=== PATIENT | female | born 2000 | race African-American/Black ===

== ENCOUNTER 2019-04-03 11:48 | Emergency (ER) | payer BC, OTHER ==
[2019-04-03 12:43] LABS: Pregnancy Test - Urine (BHCG) Negative (Negative); Pregu Control Background? CLEAR/WHITE (CLR/WHITE); Pregu Control Bar Appear? YES (CONTROL BAR); Specific Gravity 1.016 (1.002-1.036)
[2019-04-03] MEDS ORDERED: Ketorolac Tromethamine 30 MG/ML VIAL ONE (12:58)
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
== END 2019-04-03 14:07 | disposition home or self-care (01) ==
LOC: ERS 11:48
DX: S16.1XXA Strain of muscle, fascia and tendon at neck level, initial encounter (principal); S39.012A Strain of muscle, fascia and tendon of lower back, initial encounter; S29.012A Strain of muscle and tendon of back wall of thorax, initial encounter; M25.562 Pain in left knee; V44.5XXA Car driver injured in collision with heavy transport vehicle or bus in traffic accident, initial encounter
CPT/HCPCS: 72125; 72128; 81025; 96372; J1885

== ENCOUNTER 2019-07-29 22:08 | Emergency (ER) | payer BC ==
[2019-07-29 22:48] LABS: Bilirubin Negative (Negative); Blood, Urine Negative (Negative); Clarity Clear (Clear); Glucose, Urine (Dipstick) Normal (Negative); Leukocyte 75 Leu/uL (Negative); Mucous/LPF Rare LPF (<2+); Nitrite Negative (Negative); Protein, Urine (Dipstick) Negative (Neg-Trace); RBC/HPF 0-3 HPF (0-3); Squamous Epithelial 0-3 HPF (0-3); Urobilinogen Normal mg/dL (Less than 2)
[2019-07-29 22:57] LABS: Bacteria/HPF Rare-Few HPF (None Seen)
[2019-07-29 23:10] LABS: #Basophils 0.1 thou/uL (0.0-0.2); #Eosinphils 0.2 thou/uL (0.0-0.7); #Lymphocytes 2.4 thou/uL (1.20-3.40); #Monocytes 0.5 thou/uL (0.11-0.59); #Neutrophils 3.9 thou/uL (1.40-6.50); %Basophils 0.9 % (0.0-1.0); %Eosinophils 3.5 % (0.0-10.0); %Lymphocytes 33.2 % (28.0-48.0); %Monocytes 7.5 % (0.0-4.0); %Neutrophils 54.9 % (31.0-61.0); Hemoglobin 12.2 g/dL (12.0-16.0); Mean Corpuscular HGB CONC 33.9 g/dL (32.0-36.0); Mean Corpuscular Hemoglobin 28.5 pg (25.0-35.0); Mean Corpuscular Volume 84.2 fL (78.0-98.0); Mean Platelet Volume 6.3 fL (7.4-10.4); Platelet Count 295 thou/uL (130-400); RBC Distribution Width 11.8 % (11.5-14.5); Red Blood Cell (RBC) Count 4.28 mill/uL (4.00-5.20); White Blood Cell (WBC) Count 7.2 thou/uL (4.8-10.8)
[2019-07-29 23:31] LABS: ALT (SGPT) 14 U/L (8-55); AST (SGOT) 15 U/L (5-34); Albumin 3.9 g/dL (3.5-5.0); Alkaline Phosphatase 43 U/L (40-100); Anion Gap 10 mmol/L (10-20); BUN (Urea Nitrogen) 6 mg/dL (7.0-18.7); Bilirubin, Total Less than 0.2 mg/dL (0.2-1.2); Calc. Creatinine Clearance 0 mL/min (70-130); Calcium 9.3 mg/dL (7.8-10.44); Carbon Dioxide 23 mmol/L (22-29); Chloride 107 mmol/L (98-107); Estimated GFR-MDRD Greater than 90; Globulin 3.4 g/dL (2.4-3.5); Glucose 82 mg/dL (70-105); Potassium 4.1 mmol/L (3.5-5.1); Protein, Total 7.3 g/dL (6.0-8.3); Sodium 136 mmol/L (136-145)
[2019-07-29] MEDS ORDERED: Acetaminophen 500 MG TAB ONE (23:36)
--- NOTE | 2019-07-30 09:25 | ULT ---
PRELIMINARY REPORT/[facility]/EMERGENCY AFTER HOURS PROCEDURE: PROCEDURE INFORMATION: Exam: US , Limited Exam date and time: 07/30/2019 12:56 AM Clinical history: 19 years old, female; complicated by abdominal or pelvic pain; Gestationa l age or lmp: 14w1d; ; Patient HX: Lower back pain with standing, pain better when laying nikita n, nausea, no vaginal bleeding TECHNIQUE: Imaging protocol: Real-time ultrasound of the maternal uterus with image documentation. Exam focused on the clinical indication. COMPARISON: No relevant prior studies available. FINDINGS: GESTATION: Gestation: Single living intrauterine gestation. Heart rate: heart tones 150 beats per minute. Presentation: Breech presentation. Placenta: Posterior placenta. Amniotic fluid: Adequate amniotic fluid. BIOMETRY: Estimated gestational age: Gestational age 14 weeks and 1 day. Estimated due date: Estimated due date 01/27/2020. IMPRESSION: Single living intrauterine gestation measuring 14 weeks and 1 day with estimated due date 01/27/2020. Thank you for allowing us to participate in the care of your patient. Dictated and Authenticated by: Андрей Acevedo MD 07/30/2019 2:28 AM Central Time ([place] & [place]) FINAL REPORT LIMITED OB ULTRASOUND/PELVIC ULTRASOUND WITH DOPPLER: IMPRESSION: I agree with the preliminary report given by Thelma. POS: [facility]
== END 2019-07-30 01:31 | disposition home or self-care (01) ==
LOC: ERS 22:08
DX: O99.89 Other specified diseases and conditions complicating pregnancy, childbirth and the puerperium (principal); M54.6 Pain in thoracic spine; Z3A.13 13 weeks gestation of pregnancy
CPT/HCPCS: 36415; 76856; 80053; 81003; 81015; 84702; 85025; 87086; 93976

== ENCOUNTER 2019-08-27 09:00 | Emergency (ER) | payer BC ==
[2019-08-27 10:42] LABS: #Eosinphils 0.1 thou/uL (0.0-0.7); #Lymphocytes 1.8 thou/uL (1.20-3.40); #Monocytes 0.5 thou/uL (0.11-0.59); #Neutrophils 3.9 thou/uL (1.40-6.50); %Basophils 0.2 % (0.0-1.0); %Eosinophils 2.4 % (0.0-10.0); %Lymphocytes 28.6 % (28.0-48.0); %Monocytes 7.2 % (0.0-4.0); %Neutrophils 61.7 % (31.0-61.0); Hemoglobin 11.8 g/dL (12.0-16.0); Mean Corpuscular Volume 84.9 fL (78.0-98.0); Mean Platelet Volume 6.7 fL (7.4-10.4); Platelet Count 275 thou/uL (130-400); RBC Distribution Width 11.6 % (11.5-14.5); Red Blood Cell (RBC) Count 4.21 mill/uL (4.00-5.20); White Blood Cell (WBC) Count 6.2 thou/uL (4.8-10.8)
[2019-08-27 10:59] LABS: Bilirubin Negative (Negative); Blood, Urine Negative (Negative); Clarity Clear (Clear); Glucose, Urine (Dipstick) Normal (Negative); Leukocyte 75 Leu/uL (Negative); Nitrite Negative (Negative); Protein, Urine (Dipstick) Negative (Neg-Trace); RBC/HPF 0-3 HPF (0-3); Squamous Epithelial 0-3 HPF (0-3); Urobilinogen Normal mg/dL (Less than 2); WBC/HPF 0-3 HPF (0-3)
[2019-08-27 11:00] LABS: ALT (SGPT) 15 U/L (8-55); AST (SGOT) 15 U/L (5-34); Albumin 3.5 g/dL (3.5-5.0); Alkaline Phosphatase 39 U/L (40-100); Anion Gap 8 mmol/L (10-20); BUN (Urea Nitrogen) 4 mg/dL (7.0-18.7); Bilirubin, Total Less than 0.2 mg/dL (0.2-1.2); Calc. Creatinine Clearance 0 mL/min (70-130); Calcium 8.6 mg/dL (7.8-10.44); Carbon Dioxide 22 mmol/L (22-29); Chloride 108 mmol/L (98-107); Estimated GFR-MDRD Greater than 90; Globulin 3.1 g/dL (2.4-3.5); Glucose 70 mg/dL (70-105); Lipase 16 U/L (8-78); Potassium 3.6 mmol/L (3.5-5.1); Protein, Total 6.6 g/dL (6.0-8.3); Sodium 134 mmol/L (136-145)
[2019-08-27 11:06] LABS: Bacteria/HPF None Seen HPF (None Seen)
[2019-08-27 11:37] LABS: Creatinine, Urine 104.44 mg/dL (47-110); Protein, Urine Random Quant Less than 10 mg/dL (1-14)
== END 2019-08-27 12:14 | disposition home or self-care (01) ==
LOC: ERS 09:00
DX: O26.891 Other specified pregnancy related conditions, first trimester (principal); R10.9 Unspecified abdominal pain; Z3A.17 17 weeks gestation of pregnancy
CPT/HCPCS: 36415; 80053; 81003; 81015; 82570; 83690; 84156; 85025; 99284

== ENCOUNTER 2019-10-13 16:08 | Emergency (ER) | payer BC ==
[2019-10-13] MEDS ORDERED: Ondansetron PF 4 MG/2 ML Vial ONE (17:27)
[2019-10-13 17:53] LABS: #Eosinphils 0.1 thou/uL (0.0-0.7); #Lymphocytes 1.8 thou/uL (1.20-3.40); #Monocytes 0.5 thou/uL (0.11-0.59); #Neutrophils 6.6 thou/uL (1.40-6.50); %Basophils 0.3 % (0.0-1.0); %Eosinophils 1.2 % (0.0-10.0); %Lymphocytes 20.1 % (28.0-48.0); %Monocytes 5.8 % (0.0-4.0); %Neutrophils 72.6 % (31.0-61.0); Hemoglobin 12.2 g/dL (12.0-16.0); Mean Corpuscular HGB CONC 33.7 g/dL (32.0-36.0); Mean Corpuscular Hemoglobin 28.1 pg (25.0-35.0); Mean Corpuscular Volume 83.2 fL (78.0-98.0); Mean Platelet Volume 6.6 fL (7.4-10.4); Platelet Count 292 thou/uL (130-400); RBC Distribution Width 11.3 % (11.5-14.5); Red Blood Cell (RBC) Count 4.36 mill/uL (4.00-5.20); White Blood Cell (WBC) Count 9.1 thou/uL (4.8-10.8)
[2019-10-13 18:17] LABS: Bacteria/HPF None Seen HPF (None Seen); Bilirubin Negative (Negative); Blood, Urine Negative (Negative); Clarity Clear (Clear); Glucose, Urine (Dipstick) Normal (Negative); Leukocyte 25 Leu/uL (Negative); Nitrite Negative (Negative); Protein, Urine (Dipstick) Negative (Neg-Trace); RBC/HPF 0-3 HPF (0-3); Squamous Epithelial 0-3 HPF (0-3); Urobilinogen Normal mg/dL (Less than 2); WBC/HPF 0-3 HPF (0-3)
[2019-10-13 18:20] LABS: ALT (SGPT) 8 U/L (8-55); AST (SGOT) 12 U/L (5-34); Albumin 3.7 g/dL (3.5-5.0); Alkaline Phosphatase 48 U/L (40-100); Anion Gap 11 mmol/L (10-20); BUN (Urea Nitrogen) 5 mg/dL (7.0-18.7); Bilirubin, Total 0.3 mg/dL (0.2-1.2); Calc. Creatinine Clearance 0 mL/min (70-130); Calcium 8.9 mg/dL (7.8-10.44); Carbon Dioxide 20 mmol/L (22-29); Chloride 109 mmol/L (98-107); Estimated GFR-MDRD Greater than 90; Globulin 3.5 g/dL (2.4-3.5); Glucose 87 mg/dL (70-105); Lipase 62 U/L (8-78); Potassium 3.6 mmol/L (3.5-5.1); Protein, Total 7.2 g/dL (6.0-8.3); Sodium 136 mmol/L (136-145)
== END 2019-10-13 20:00 | disposition home or self-care (01) ==
LOC: ERS 16:08
DX: O99.282 Endocrine, nutritional and metabolic diseases complicating pregnancy, second trimester (principal); E86.0 Dehydration; E86.1 Hypovolemia; Z3A.24 24 weeks gestation of pregnancy
CPT/HCPCS: 80053; 81003; 81015; 83690; 85025; 96361; 96374; J2405

== ENCOUNTER 2019-10-24 07:09 | Emergency (ER) | payer BC, MEDICAID ==
[2019-10-24] MEDS ORDERED: Lidocaine 1% w/Epinephrine 1:100K 20 ML VIAL ONE (07:37)
== END 2019-10-24 08:19 | disposition home or self-care (01) ==
LOC: ERS 07:09
DX: O99.712 Diseases of the skin and subcutaneous tissue complicating pregnancy, second trimester (principal); L02.412 Cutaneous abscess of left axilla; Z3A.25 25 weeks gestation of pregnancy
CPT/HCPCS: 10060

== ENCOUNTER 2019-10-25 10:55 | Emergency (ER) | payer BC, MEDICAID | END 2019-10-25 11:50 | disposition home or self-care (01) | LOC: ERS 10:55 | DX: O99.89 Other specified diseases and conditions complicating pregnancy, childbirth and the puerperium (principal); Z48.817 Encounter for surgical aftercare following surgery on the skin and subcutaneous tissue; Z79.899 Other long term (current) drug therapy; Z3A.25 25 weeks gestation of pregnancy | CPT/HCPCS: 99283 ==

== ENCOUNTER 2019-11-20 22:11 | Day surgery (SDC) | payer OTHER ==
[2019-11-20 22:46] VITALS: BMI 38.4
[2019-11-20] MEDS ORDERED: hydrALAZINE 20 MG/ML VIAL SLOW IVP PRN (23:00)
--- NOTE | 2019-11-20 23:39 | PRG ---
DATE OF SERVICE: 11/20/2019 TIME OF SERVICE: 2300 hours. PRESENTING COMPLAINT: Abdominal pain for 1 to 2 weeks at 29 weeks gestation. HISTORY OF PRESENT ILLNESS: The patient presents complaining of abdominal discomfort that she states is more global, is not cyclic, and not associated with any discharge, bleeding, back pain, or dysuria. She states it has been present for a week or two, but she forgot to mention it to Dr. Goldstein, so she wanted to have it checked out tonight. OFFICE ASSISTANCE HISTORY: Primigravida, EDC of 01/31. Blood type O positive, antibody negative. Pap negative. Rubella immune. VDRL nonreactive. Hepatitis B, GC negative. Chlamydia positive. Normal 50 g. PAST MEDICAL HISTORY: Denies. PAST SURGICAL HISTORY: Denies. ALLERGIES: NONE. MEDICATIONS: vitamins. SOCIAL HISTORY: Denies tobacco, alcohol, or IV drug use. FAMILY HISTORY: Noncontributory. REVIEW OF SYSTEMS: Noncontributory. PHYSICAL EXAMINATION: GENERAL: Obese, black female, in no acute distress. VITAL SIGNS: Temperature 97.9, respirations 18, pulse 85, and blood pressure 118/82. HEENT: Within normal limits. LUNGS: Clear to auscultation bilaterally. HEART: Regular rate and rhythm. ABDOMEN: Soft and nontender without rebound or guarding. She is on normal discomfort with palpation of the fundus. She has no CVA tenderness. Vulva has no lesions. Vaginal exam is deferred. EXTREMITIES: Without clubbing, cyanosis, or edema. 20-minute strip was obtained. heart rate tracing was 150s without decelerations. There is minimal variability noted consistent with the patient's of 29 weeks gestation. No contractions were noted. IMPRESSION: Discomforts of at 29 weeks gestation. No pathologic diagnosis. PLAN: ER precautions. The patient is to keep scheduled followup with Dr. Goldstein. Discharge home. Job ID: [id number]
== END 2019-11-20 23:16 | disposition home health service (06) ==
LOC: L&D/OP 22:11
PROVIDERS: ATTEND Obstetrics & Gynecology
DX: O99.89 Other specified diseases and conditions complicating pregnancy, childbirth and the puerperium (principal); R10.9 Unspecified abdominal pain; Z3A.29 29 weeks gestation of pregnancy
CPT/HCPCS: 99282

== ENCOUNTER 2019-11-26 18:14 | Day surgery (SDC) | payer OTHER ==
[2019-11-26 18:47] VITALS: BMI 38.4
[2019-11-26] MEDS ORDERED: hydrALAZINE 20 MG/ML VIAL SLOW IVP PRN (18:59)
[2019-11-26] MEDS ORDERED: FLU VACC QS2019-20(6MOS UP)/PF 60 MCG/0.5 ML SYRINGE IM ONE (19:00)
[2019-11-26 19:43] LABS: Bacteria/HPF None Seen HPF (None Seen); Bilirubin Negative (Negative); Blood, Urine Negative (Negative); Clarity Clear (Clear); Glucose, Urine (Dipstick) Normal (Negative); Leukocyte 75 Leu/uL (Negative); Nitrite Negative (Negative); Protein, Urine (Dipstick) Negative (Neg-Trace); RBC/HPF 0-3 HPF (0-3); Squamous Epithelial 0-3 HPF (0-3); Urobilinogen Normal mg/dL (Less than 2); WBC/HPF 0-3 HPF (0-3)
[2019-11-26 20:09] LABS: FFN Internal QC Analyzer PASS (PASS); FFN Internal QC Cassette PASS (PASS); Fetal Fibronectin Negative (Negative)
--- NOTE | 2019-11-27 01:46 | SS ---
DATE OF ADMISSION: 11/26/2019 DATE OF DISCHARGE: 11/26/2019 REGULAR PHYSICIAN: Андрей Goldstein MD EVALUATING PHYSICIAN: Glenroy Delacruz MD CHIEF COMPLAINT: Back pain, lower abdominal pain. HISTORY OF PRESENT ILLNESS: Ms. Rosales is a 19-year-old black G1, P0 with an estimated date of confinement of 02/01/2020, who presents complaining of intermittent back and lower abdominal discomfort. She denies ruptured membranes or vaginal bleeding. She had similar complaints almost a week ago with Dr. Garcia and her exam was nonfocal at that time. Her care has been with Dr. Goldstein without reported complications. PAST MEDICAL HISTORY: None. PAST SURGICAL HISTORY: None. CURRENT MEDICATIONS: vitamins. ALLERGIES: NO KNOWN ALLERGIES. SOCIAL HISTORY: Denies tobacco or alcohol use. She denies drug use. FAMILY HISTORY: Unremarkable. REVIEW OF SYSTEMS: Denies nausea, vomiting, fever, chills, ruptured membranes, or vaginal bleeding. PHYSICAL EXAMINATION: VITAL SIGNS: Her vital signs are stable. She is afebrile. GENERAL: She is in no distress. ABDOMEN: Soft, nontender, and gravid. heart rate tracing is stable. No uterine contractions are seen. Urinalysis shows a specific gravity of 1.018. Her urine is clear. Negative for protein, negative glucose, negative ketones, negative blood, negative nitrites. Trace leukocyte esterase. On microscopic, there is 0 to 3 rbc's, 0 to 3 wbc's, 0 to 3 squamous cells with no bacteria seen. Her fibronectin returns negative. PELVIC: Pelvic exam done after the completion of these tests by the labor nurse shows her cervix to be closed and long. ASSESSMENT: 1. Thirty and 3/7th week intrauterine . 2. No evidence of labor. PLAN: As I suspect this probably just represents round ligament pain, I have told her that she can use Tylenol at home and either soak in a warm tub or use a heating pad low on her back. labor precautions were reviewed with her in detail. The patient voices understanding of her discharge instructions and was sent home in good condition. She states that she has an appointment with Dr. Goldstein in approximately one weeks time. Job ID: [id number]
== END 2019-11-26 20:56 | disposition home or self-care (01) ==
LOC: L&D/OP 18:14
PROVIDERS: ATTEND Obstetrics & Gynecology
DX: O99.89 Other specified diseases and conditions complicating pregnancy, childbirth and the puerperium (principal); M54.9 Dorsalgia, unspecified; R10.30 Lower abdominal pain, unspecified; Z3A.30 30 weeks gestation of pregnancy
CPT/HCPCS: 81003; 81015; 82731

== ENCOUNTER 2020-01-27 04:01 | Day surgery (SDC) | payer BC, OTHER ==
[2020-01-27 04:37] VITALS: BP 128/75; TEMP 99; BMI 39.9
[2020-01-27] MEDS ORDERED: hydrALAZINE 20 MG/ML VIAL SLOW IVP PRN (04:55)
--- NOTE | 2020-01-27 08:08 | PRG ---
DATE OF SERVICE: 01/27/2020 PRIMARY OB: Андрей Goldstein MD CHIEF COMPLAINT: Pelvic cramping and decreased movement. HISTORY OF PRESENT ILLNESS: The patient is a 19-year-old G1, P0 female with an intrauterine at 39 weeks and 2 days, presenting to Labor and Delivery with pelvic pains that are more sharp in nature and also pressure in her bottom and decreased movement. The patient denies any leakage of fluid, change in discharge or vaginal bleeding. She denies painful contractions. She denies fever, cough, headache, chest pain, shortness of breath, nausea, vomiting, or constipation. The patient reports she has had some diarrhea in the last 24 hours. Denies new rashes, hip problems, knee problems, muscle weakness, vaginal bleeding, leakage of fluid, urinary urgency or frequency. PAST MEDICAL HISTORY: Negative. PAST SURGICAL HISTORY: Negative. ALLERGIES: NO KNOWN DRUG ALLERGIES. MEDICATIONS: vitamins. SOCIAL HISTORY: Denies drug, alcohol, or tobacco use. OB LABS: Blood type is O-positive, GBS is negative. She is rubella immune. Hepatitis B surface antigen is negative. RPR is negative. REVIEW OF SYSTEMS: Per HPI. PHYSICAL EXAMINATION: VITAL SIGNS: Blood pressure is 128/75, heart rate of 75, respiratory rate of GENERAL: She appears to be in no acute distress. She is alert, oriented, cooperative, pleasant to interact with. HEENT: Head is normocephalic, atraumatic. LUNGS: Clear to auscultation bilaterally. HEART: Has a regular rate and rhythm. ABDOMEN: Gravid, soft, nontender. She does have some tenderness with deviation of the uterus to the left and right sides. EXTREMITIES: Nontender, nonedematous. CERVICAL: Closed. heart tracing shows the fetus with a baseline in the 130s with moderate long-term variability and positive 15 x 15 accelerations. ASSESSMENT AND PLAN: The patient is a 19-year-old female with an intrauterine at 39 weeks and 2 days, presenting with decreased movement and pelvic abdominal cramping. There is no evidence of labor at this time and fetus has a reactive NST. The patient is being discharged home. She has an appointment to follow up with Dr. Goldstein in a couple of days, which we have encouraged that she keep. Job ID: [id number]
== END 2020-01-27 05:32 | disposition home or self-care (01) ==
LOC: L&D/OP 04:01
PROVIDERS: ATTEND Obstetrics & Gynecology
DX: O36.8130 Decreased fetal movements, third trimester, not applicable or unspecified (principal); O99.89 Other specified diseases and conditions complicating pregnancy, childbirth and the puerperium; R10.2 Pelvic and perineal pain; Z3A.39 39 weeks gestation of pregnancy
CPT/HCPCS: 99282

== ENCOUNTER 2020-02-01 14:04 | Inpatient (IN) | payer BC, OTHER ==
[2020-02-01 14:35] VITALS: BMI 39.7
[2020-02-01] MEDS: Lactated Ringer's 1,000 ML IV SCH (14:52)
[2020-02-01 15:05] LABS: Amnisure Test RUPTURE DETECTED (No Rupture)
[2020-02-01 15:06] LABS: Amnisure Internal Control QC ACCEPTABLE (ACCEPTABLE)
[2020-02-01] MEDS ORDERED: Misoprostol 200 MCG TAB PR PRN (15:07)
[2020-02-01] MEDS ORDERED: HYDROcodone/Acetaminophen 5/325 mg Tablet PO PRN (15:07)
[2020-02-01] MEDS ORDERED: Lidocaine 1% (PF) 30 ML VIAL SC PRN (15:07)
[2020-02-01] MEDS ORDERED: NS / Oxytocin 40 units/1000ml 1,000 ML IV PRN (15:07)
[2020-02-01] MEDS ORDERED: Carboprost 250 MCG/ML AMP IM PRN (15:07)
[2020-02-01] MEDS ORDERED: Methylergonovine 0.2 MG/ML VIAL IM PRN (15:07)
[2020-02-01] MEDS ORDERED: Diphenoxylate HCl/Atropine Tablet PO PRN (15:07)
[2020-02-01] MEDS ORDERED: Butorphanol Tartrate 1 MG/ML VIAL SLOW IVP PRN (15:07)
[2020-02-01] MEDS ORDERED: Ondansetron PF 4 MG/2 ML Vial IVP PRN (15:07)
[2020-02-01] MEDS ORDERED: Ibuprofen 800 MG TAB PO PRN (15:07)
[2020-02-01] MEDS ORDERED: hydrALAZINE 20 MG/ML VIAL SLOW IVP PRN (15:07)
[2020-02-01] MEDS ORDERED: Acetaminophen 500 MG TAB PO PRN (15:07)
[2020-02-01] MEDS ORDERED: Promethazine HCl 25 MG/ML VIAL IM PRN (15:07)
[2020-02-01] MEDS ORDERED: NS w/ Oxytocin 10 units 500 ML IV SCH (15:15)
[2020-02-01] MEDS: Misoprostol 100 MCG TAB PO SCH ×3 (15:43→23:07)
[2020-02-01 15:45] LABS: Hemoglobin 13.2 g/dL (12.0-16.0); Mean Corpuscular HGB CONC 33.2 g/dL (32.0-36.0); Mean Corpuscular Hemoglobin 28.3 pg (25.0-35.0); Mean Corpuscular Volume 85.4 fL (78.0-98.0); Mean Platelet Volume 7.7 fL (7.4-10.4); Platelet Count 285 thou/uL (130-400); RBC Distribution Width 12.9 % (11.5-14.5); Red Blood Cell (RBC) Count 4.66 mill/uL (4.00-5.20)
[2020-02-01 16:17] LABS: Hep B Surf Ag Non-Reactive S/CO (NonReactive)
[2020-02-01 16:24] LABS: Syphilis Antibody Nonreactive (Nonreactive); Syphilis Antibody Index 0.08 S/CO (<1.00 Non-Reactive)
[2020-02-02] MEDS ORDERED: Fentanyl 4 mcg/Bup 0.1% Cadd 100 ML ONE (04:13)
[2020-02-02] MEDS: Lactated Ringer's 1,000 ML IV SCH ×3 (04:41→19:55)
[2020-02-02] MEDS ORDERED: Lactated Ringer's 500 ML IV PRN (05:05)
[2020-02-02] MEDS ORDERED: diphenhydrAMINE 50 MG/ML VIAL IVP PRN ×3 (05:05→11:01)
[2020-02-02] MEDS ORDERED: Ondansetron PF 4 MG/2 ML Vial IVP PRN ×4 (05:05→13:27)
[2020-02-02] MEDS ORDERED: EPHEDRINE 25 MG/5 ML SYRINGE SLOW IVP PRN (05:05)
[2020-02-02] MEDS ORDERED: Naloxone HCl 0.4 mg/ml Vial IVP PRN ×4 (05:05→11:01)
[2020-02-02] MEDS ORDERED: Promethazine HCl 25 MG/ML VIAL IM PRN ×3 (05:05→11:01)
[2020-02-02] MEDS ORDERED: Acetaminophen 325 MG TAB PO PRN ×2 (05:05→13:27)
[2020-02-02] MEDS ORDERED: Fentanyl 4 mcg/Bupivacaine 0.1% Cassette 100 ML EPIDURAL SCH (05:15)
[2020-02-02] MEDS ORDERED: Communication Order-Pharmacy FS SCH ×3 (05:15→11:15)
[2020-02-02] MEDS ORDERED: Lidocaine 2% MPF 10 ML AMP (For Epidural Use) ONE (08:51)
[2020-02-02] MEDS ORDERED: PHENYLEPHRINE-NS 100 MCG/ML 10 ML SYRINGE ONE (08:51)
[2020-02-02] MEDS ORDERED: EPHEDRINE 25 MG/5 ML SYRINGE ONE (08:51)
[2020-02-02] MEDS ORDERED: Bupivacaine 0.5% 10 ML VIAL ONE (08:51)
[2020-02-02] MEDS ORDERED: Oxytocin 10 UNITS/ML VIAL ONE (08:51)
[2020-02-02] MEDS ORDERED: MORPHINE 5 MG/10 ML PF VIAL ONE (08:52)
[2020-02-02] MEDS ORDERED: Bicitra 30 ML UDCUP ONE (09:03)
[2020-02-02] MEDS ORDERED: Azithromycin 500 MG VIAL ONE (09:38)
--- NOTE | 2020-02-02 09:42 | PDOC.LDHP ---
Labor and Delivery H&P Chief complaint: loss of fluid HPI: 19 y/o presents to L&D grossly ruptured, and admitted for a trial of labor. Minimal contractions, premature ROM. We will start Cytotec po as cervix remains unfavorable. is still a real possibility if patient doesn't respond to Cytotec/Pitocin. Due date: 02/01/20 Grav: 1 Para: 0 Current medications: pre- vitamins Allergies/Adverse Reactions: Allergies Allergy/AdvReac Type Severity Reaction Status Date / Time No Known Drug Allergies Allergy Verified 02/01/20 14:32 Social history: none - Physical Exam Vital signs reviewed and normal: yes General: NAD, resting, breathing through contractions Heart: RRR Lungs: CTAB Abdomen: gravid Extremeties: no edema FHT: category 1 - Assessment L&D Assessment: term rupture in membranes - Plan Plan: admit to L&D, cervical ripening
[2020-02-02] MEDS ORDERED: Bicitra 30 ML UDCUP PO SCH (09:45)
[2020-02-02] MEDS ORDERED: CEFAZOLIN 2 GM in Premix Bag 1 BAG IVPB SCH (09:45)
[2020-02-02] MEDS ORDERED: Azithromycin 500 MG in Sodium Chloride 0.9% 250 ML 250 ML IVPB SCH (09:45)
--- NOTE | 2020-02-02 09:48 | PDOC.LDPN ---
Labor & Delivery Progress Note - Subjective Subjective: comfortable, loss of fluid - Objective Vital signs reviewed and normal: yes General: NAD, resting Uterine fundus: non tender Dilation: 2 Effacement: 50% -: Patient has been ruptured over 20 hours. Variablity is still minimal,and nursing team not comfortable starting pitocin. Cervix has only slight change since admission. The above was carefully discusse with the patient who opts to proceed with , and decrease risk of Chorioamnionitis at this point which makes sense. Azithromycin and Ancef will be given. R/B/A of carefully reviewed with patient.
[2020-02-02] MEDS ORDERED: Succinylcholine Chloride 20 MG/ML 10 ml SYRINGE FS ONE (10:03)
[2020-02-02] MEDS ORDERED: PROPOFOL 20 ML ONE (10:03)
[2020-02-02] MEDS ORDERED: Fentanyl 100 MCG/2 ML VIAL ONE ×2 (10:22→10:24)
[2020-02-02] MEDS ORDERED: diphenhydrAMINE 50 MG/ML VIAL IM PRN (11:01)
[2020-02-02] MEDS ORDERED: Zolpidem Tartrate 5 MG TAB PO PRN (11:01)
[2020-02-02] MEDS ORDERED: fentaNYL Citrate/PF 2,000 MCG in Sodium Chloride 0.9% 60 ML IV PRN (11:01)
[2020-02-02] MEDS ORDERED: HYDROmorphone 2 MG/ML VIAL SLOW IVP PRN (11:01)
[2020-02-02] MEDS ORDERED: Promethazine HCl 25 MG SUPP PR PRN (11:01)
[2020-02-02] MEDS ORDERED: Ondansetron HCl/PF 4 MG/2 ML Vial IVP PRN (11:01)
[2020-02-02] MEDS ORDERED: L&D-Morphine 4 MG/ML VIAL SLOW IVP PRN (11:01)
[2020-02-02] MEDS ORDERED: Meperidine HCl/PF 25 MG/ML VIAL SLOW IVP PRN (11:01)
[2020-02-02] MEDS ORDERED: diphenhydrAMINE 25 MG CAP PO PRN (11:01)
[2020-02-02] MEDS ORDERED: Naloxone HCl 0.4 mg/ml Vial IV PRN ×2 (11:01)
[2020-02-02] MEDS ORDERED: Ketorolac Tromethamine 30 MG/ML VIAL IVP SCH (11:15)
[2020-02-02] MEDS ORDERED: Ketorolac Tromethamine 30 MG/ML VIAL ONE (11:17)
[2020-02-02] MEDS ORDERED: Meperidine HCl/PF 25 MG/ML VIAL ONE (11:17)
[2020-02-02] MEDS ORDERED: NS / Oxytocin 40 units/1000ml 1,000 ML ONE (11:18)
[2020-02-02] MEDS: Ketorolac Tromethamine 30 MG/ML VIAL IVP PRN (11:20)
[2020-02-02] MEDS ORDERED: Varicella virus, LIVE 0.5 ML VIAL SC ONE (13:27)
[2020-02-02] MEDS ORDERED: hydrALAZINE 20 MG/ML VIAL SLOW IVP PRN (13:27)
[2020-02-02] MEDS ORDERED: Measles/Mumps/Rubella 10 MCG/0.5 ML VIAL SC ONE (13:27)
[2020-02-02] MEDS ORDERED: Adacel (T-DAP) 0.5 ML SYRINGE IM ONE (13:27)
[2020-02-02] MEDS: Misoprostol 100 MCG TAB PO SCH (13:31)
[2020-02-02] MEDS: Ferrous Sulfate 325 MG TAB PO SCH (17:57)
[2020-02-02] MEDS: Docusate Calcium (SURFAK) 240 MG CAP PO SCH (21:30)
[2020-02-03] MEDS ORDERED: Simethicone Chewable 80 MG TAB PO PRN (00:16)
[2020-02-03] MEDS: Ketorolac Tromethamine 30 MG/ML VIAL IVP PRN (03:47)
[2020-02-03] MEDS: Lactated Ringer's 1,000 ML IV SCH (03:48)
[2020-02-03 06:02] LABS: Hemoglobin 10.4 g/dL (12.0-16.0); Mean Corpuscular HGB CONC 32.8 g/dL (32.0-36.0); Mean Corpuscular Hemoglobin 27.9 pg (25.0-35.0); Mean Corpuscular Volume 85.2 fL (78.0-98.0); Mean Platelet Volume 6.9 fL (7.4-10.4); Platelet Count 234 thou/uL (130-400); RBC Distribution Width 12.7 % (11.5-14.5); Red Blood Cell (RBC) Count 3.72 mill/uL (4.00-5.20); White Blood Cell (WBC) Count 12.1 thou/uL (4.8-10.8)
[2020-02-03] MEDS: Ferrous Sulfate 325 MG TAB PO SCH ×2 (07:37→14:50)
[2020-02-03] MEDS: Prenatal Vitamin 1 TAB PO SCH (07:39)
[2020-02-03] MEDS: Docusate Calcium (SURFAK) 240 MG CAP PO SCH ×2 (07:39→21:44)
--- NOTE | 2020-02-03 14:09 | PDOC.PP ---
Post Progress Note Post Day #: 1 PO intake tolerated: yes Flatus: yes Ambulation: yes Vital Signs (12 hours) Temp Pulse Resp BP Pulse Ox 02/03/20 11:05 98.9 F 87 20 133/80 97 02/03/20 07:57 98.7 F 82 20 136/86 97 02/03/20 03:40 98.3 F 85 18 133/82 Weight Weight 239 lb - Physical Examination General: NAD Cardiovascular: no m/r/g, RRR Respiratory: clear to auscultation bilaterally, non-labored breathing Abdominal: no distention, appropriately TTP Extremities: negative homans (B) Skin: CS incision dry & intact, no rash Neurological: no gross focal deficits Psychiatric: A&Ox3, normal affect Result Diagrams: 02/03/20 05:36 Additional Labs: Post Labs Blood Type O POSITIVE 02/01/20 15:59 Hep Bs Antigen Non-Reactive S/CO (NonReactive) 02/01/20 15:23
[2020-02-03] MEDS: Ibuprofen 800 MG TAB PO SCH ×2 (14:48→21:45)
[2020-02-04] MEDS: Ibuprofen 800 MG TAB PO SCH ×3 (05:29→22:37)
[2020-02-04] MEDS: Ferrous Sulfate 325 MG TAB PO SCH ×2 (08:06→11:42)
[2020-02-04] MEDS: Docusate Calcium (SURFAK) 240 MG CAP PO SCH ×2 (09:30→22:37)
[2020-02-04] MEDS: Prenatal Vitamin 1 TAB PO SCH (09:30)
[2020-02-04] MEDS: HYDROcodone/Acetaminophen 5/325 mg Tablet PO PRN ×4 (10:15→22:37)
--- NOTE | 2020-02-04 12:34 | PDOC.PP ---
Post Progress Note Post Day #: 2 PO intake tolerated: yes Flatus: yes Ambulation: yes Vital Signs (12 hours) Temp Pulse Resp BP Pulse Ox 02/04/20 11:37 97.8 F 102 H 20 139/87 99 02/04/20 07:53 98.4 F 78 20 132/84 98 02/04/20 04:45 98.3 F 72 17 136/78 02/04/20 00:40 98.9 F 89 16 123/74 Weight Weight 239 lb - Physical Examination General: NAD Cardiovascular: no m/r/g, RRR Respiratory: clear to auscultation bilaterally, non-labored breathing Abdominal: + bowel sounds, lochia, no distention, appropriately TTP Extremities: negative homans (B) Skin: CS incision dry & intact, no rash Neurological: no gross focal deficits Psychiatric: A&Ox3, normal affect Result Diagrams: 02/03/20 05:36 Additional Labs: Post Labs Blood Type O POSITIVE 02/01/20 15:59 Hep Bs Antigen Non-Reactive S/CO (NonReactive) 02/01/20 15:23
--- NOTE | 2020-02-04 13:04 | OP ---
DATE OF PROCEDURE: 02/02/2020 TIME: At 1010 hours central daylight savings time. PREOPERATIVE DIAGNOSIS: Intrauterine at 40 weeks and 1 day with spontaneous rupture of membranes with failure to dilate. POSTOPERATIVE DIAGNOSIS: Intrauterine at 40 weeks and 1 day with spontaneous rupture of membranes with failure to dilate. PROCEDURE PERFORMED: Primary low-transverse section under general anesthesia. FINDINGS: Viable male , weighing 2947 g or 6 pounds 8 ounces. Apgars of 8 and 9. QUANTITATIVE BLOOD LOSS: 415 mL. COMPLICATIONS: None. DETAILS OF THE PROCEDURE: The patient was consented and taken back to the operating room where spinal anesthesia was found to be adequate. She was then prepped and draped in the normal sterile fashion. A timeout was performed by the entire operative team. The incision was then marked with a marking pen tested using sharp pickups. An incision was then made with a scalpel. The incision was carried through the adipose tissue down to the underlying rectus fascia using both sharp dissection as well as cautery. Once the fascia was identified, it was incised in the midline and then the fascial incision was carried through in both lateral directions using sharp as well as cautery dissection techniques. Next, the superior aspect of the rectus fascia was grasped with 2 Jasmina clamps, which was tented up and the rectus muscles were dissected off using blunt dissection as well as cautery dissection. Similarly, the inferior aspect of the fascial incision was grasped with 2 Jasmina clamps, tented up and the rectus muscles were dissected off bluntly as well as sharply. Next, the rectus muscles were in the midline and the peritoneum identified. The peritoneum was then carefully grasped with 2 hemostats and entered sharply. The peritoneal incision was extended superiorly and inferiorly and bladder blade was placed in the lower abdomen. At this point, the uterus was identified and the bladder flap was then developed using pickups with teeth as well as Metzenbaum scissors in both lateral directions. The bladder flap was then dissected downwards using the longitudinal float operator's finger as well as Metzenbaum scissors. The bladder blade was replaced. The lower uterine segment was then identified and entered sharply using a clean scalpel. The uterine incision was then dissected downwards until thin layer of muscle remained and this was entered bluntly using a hemostat to avoid any injury to the baby. The uterine incision was then stretched using two fingers in both lateral directions. An amniotomy was performed artificially using a hemostat and the baby was delivered using fundal pressure in a gentle fashion. Once out, the baby's mouth and nose were bulb suctioned, cord clamped and cut, and the baby was handed to waiting attendants. Next, the uterus was exteriorized, cleared of all clots and debris and the uterine incision was repaired with #1 Monocryl in a running locking fashion. A 2nd suture of the same type was used to obtain complete hemostasis at the uterine incision. The bladder flap was reapproximated using 3-0 Monocryl. Next, patient's left and right adnexa were inspected and appeared to be within normal limits. The posterior cul-de-sac was blotted dry and hemostasis assured. One more look at the uterine incision demonstrated hemostasis. Next, the uterus was replaced back within the abdomen. The peritoneum was reapproximated using 2-0 Monocryl without difficulty. The rectus muscles were then allowed to come back together and 0 chromic was used to aid in reapproximation of the muscle as necessary. The rectus fascia was then reapproximated in a running fashion using 0 Vicryl suture. The adipose tissue was then examined and appeared to be well approximated without any obvious separations. Finally, the skin was reapproximated with 3-0 Monocryl on a Rory needle without difficulty and Dermabond adhesive was applied to the skin. Once the glue was dry, the drapes were removed and the patient was transferred to an ambulatory bed where she was taken to recovery awake and in stable condition. Sponge, lap, and needle counts were correct x3. Job ID: [id number]
[2020-02-05] MEDS: Ibuprofen 800 MG TAB PO SCH ×2 (05:57→14:24)
[2020-02-05 08:23] VITALS: BP 138/79; TEMP 98.6
[2020-02-05] MEDS: Ferrous Sulfate 325 MG TAB PO SCH (08:24)
[2020-02-05] MEDS: Prenatal Vitamin 1 TAB PO SCH (08:32)
[2020-02-05] MEDS: Docusate Calcium (SURFAK) 240 MG CAP PO SCH (08:32)
[2020-02-05] MEDS: HYDROcodone/Acetaminophen 5/325 mg Tablet PO PRN (09:54)
--- NOTE | 2020-02-05 12:50 | PDOC.PP ---
Post Progress Note Post Day #: 3 PO intake tolerated: yes Flatus: yes Ambulation: yes Vital Signs (12 hours) Temp Pulse Resp BP Pulse Ox 02/05/20 07:50 98 02/05/20 07:06 98.6 F 77 20 138/79 98 Weight Weight 239 lb - Physical Examination General: NAD Cardiovascular: no m/r/g, RRR Respiratory: clear to auscultation bilaterally, non-labored breathing Abdominal: + bowel sounds, lochia, no distention Extremities: negative homans (B) Skin: CS incision dry & intact, no rash Neurological: no gross focal deficits (DC to home today) Psychiatric: A&Ox3, normal affect Result Diagrams: 02/03/20 05:36 Additional Labs: Post Labs Blood Type O POSITIVE 02/01/20 15:59 Hep Bs Antigen Non-Reactive S/CO (NonReactive) 02/01/20 15:23
== END 2020-02-05 15:15 | disposition home or self-care (01) | DRG 788 ==
LOC: L&D 14:04 → 3SW 02-02 16:31
PROVIDERS: ADMIT Obstetrics & Gynecology; ATTEND Obstetrics & Gynecology
PROC: 10D00Z1 Extraction of Products of Conception, Low, Open Approach (ICD-10-PCS; principal; 2020-02-04)
DX: O63.9 Long labor, unspecified (principal); O62.0 Primary inadequate contractions; Z3A.40 40 weeks gestation of pregnancy; Z37.0 Single live birth
CPT/HCPCS: 36415; 51702; 84112; 85027; 86780; 86850; 86900; 86901; 87340; J0456; J0690; J1885; J2001; J2175; J2274; J2590; J2704; J3010; J3490; Q0163

== ENCOUNTER 2020-03-19 04:31 | Emergency (ER) | payer BC, OTHER ==
[2020-03-19] MEDS ORDERED: HYDROcodone/Acetaminophen 5/325 mg Tablet ONE (05:10)
[2020-03-19] MEDS ORDERED: Lidocaine 1% w/Epinephrine 1:100K 20 ML VIAL ONE (05:21)
[2020-03-19] MEDS ORDERED: Bacitracin 1 PK ONE (06:30)
== END 2020-03-19 06:20 | disposition home or self-care (01) ==
LOC: ERS 04:31
DX: L02.412 Cutaneous abscess of left axilla (principal)
CPT/HCPCS: 10060

== ENCOUNTER 2020-07-10 20:56 | Emergency (ER) | payer OTHER ==
[2020-07-11 13:25] LABS: SARS-CoV-2 MS2 Positive; SARS-CoV-2 N Gene Negative; SARS-CoV-2 S Gene Negative; SARS-CoV-2 by NAA Not Detected (NotDetected); SARS-CoV-2 orf1ab Negative
== END 2020-07-10 22:20 | disposition home or self-care (01) ==
LOC: ERS 20:56
DX: R50.9 Fever, unspecified (principal); Z20.828 Contact with and (suspected) exposure to other viral communicable diseases
CPT/HCPCS: 87635; 99283; U0003

== ENCOUNTER 2020-08-25 16:47 | Emergency (ER) | payer OTHER ==
[2020-08-26 01:13] LABS: SARS-CoV-2 MS2 Positive; SARS-CoV-2 N Gene Positive; SARS-CoV-2 S Gene Positive; SARS-CoV-2 by NAA DETECTED (NotDetected); SARS-CoV-2 orf1ab Positive
== END 2020-08-25 18:00 | disposition home or self-care (01) ==
LOC: ERS 16:47
DX: U07.1 COVID-19 (principal)
CPT/HCPCS: 87635; 99283; U0003

== ENCOUNTER 2021-09-18 18:35 | Emergency (ER) | payer OTHER ==
[2021-09-18] MEDS ORDERED: Acetaminophen 500 MG TAB ONE (19:18)
== END 2021-09-18 21:31 | disposition home or self-care (01) ==
LOC: ERS 18:35
DX: J10.1 Influenza due to other identified influenza virus with other respiratory manifestations (principal)
CPT/HCPCS: 87804; 99283

== ENCOUNTER 2022-09-20 19:09 | Emergency (ER) | payer OTHER ==
[2022-09-20] MEDS ORDERED: Ketorolac Tromethamine 30 MG/ML VIAL ONE (21:34)
== END 2022-09-20 21:49 | disposition home or self-care (01) ==
LOC: ERS 19:09
DX: S16.1XXA Strain of muscle, fascia and tendon at neck level, initial encounter (principal); V49.9XXA Car occupant (driver) (passenger) injured in unspecified traffic accident, initial encounter
CPT/HCPCS: 70450; 71045; 72125; 96372; J1885

== ENCOUNTER 2022-11-13 08:05 | Emergency (ER) | payer OTHER ==
[2022-11-13] MEDS ORDERED: Ketorolac Tromethamine 30 MG/ML VIAL ONE (11:23)
== END 2022-11-13 11:45 | disposition home or self-care (01) ==
LOC: ERS 08:05
DX: J02.8 Acute pharyngitis due to other specified organisms (principal)
CPT/HCPCS: 87081; 87430; 96372; 99283; J1885

== ENCOUNTER 2023-07-25 18:24 | Emergency (ER) | payer OTHER, SELFPAY ==
[2023-07-25] MEDS ORDERED: Acetaminophen 500 MG TAB ONE (19:52)
[2023-07-25 20:12] LABS: SARS-CoV-2 NAA Rapid Test Not Detected (NotDetected)
[2023-07-25] MEDS ORDERED: Dexameth. Sod Phosp. 10 MG/ML (CHEMO USE ONLY) ONE (21:34)
== END 2023-07-25 21:42 | disposition home or self-care (01) ==
LOC: ERS 18:24
DX: J02.0 Streptococcal pharyngitis (principal); Z20.822 Contact with and (suspected) exposure to COVID-19
CPT/HCPCS: 87430; 99283; J1100